=== PATIENT | male | born 1980 | race African-American/Black ===

== ENCOUNTER 2018-09-24 21:10 | Emergency (ER) | payer SELFPAY ==
[~2018-09-24] VITALS: Ht 172.7 cm; Wt 93.6 kg
[2018-09-24 21:15] VITALS: Ht 172.7 cm; Wt 93.6 kg
[2018-09-24] MEDS ORDERED: OMEPRAZOLE20 M1 PO (22:13)
[2018-09-24] MEDS ORDERED: VOLTAREN75 MG PO (22:13)
[2018-09-24] MEDS ORDERED: ZANAFLEX4 MG PO (22:13)
[2018-09-24 22:59] VITALS: BP 162/107
== END 2018-09-24 22:59 | disposition home or self-care (01) ==
LOC: D.ER 21:10
DX: S63.92XA Sprain of unspecified part of left wrist and hand, initial encounter (principal); W10.9XXA Fall (on) (from) unspecified stairs and steps, initial encounter; Y93.89 Activity, other specified; Y92.019 Unspecified place in single-family (private) house as the place of occurrence of the external cause; S33.5XXA Sprain of ligaments of lumbar spine, initial encounter

== ENCOUNTER 2019-02-06 18:54 | Emergency (ER) | payer SELFPAY ==
[~2019-02-06] VITALS: Ht 172.7 cm; Wt 100.0 kg
[~2019-02-06 18:54] MED LIST: OMEPRAZOLE20 M1 PO; VOLTAREN75 MG PO; ZANAFLEX4 MG PO
[2019-02-06 19:15] VITALS: Ht 172.7 cm; Wt 100.0 kg
[2019-02-06] MEDS ORDERED: CYCLOBENZAPRINE10 MG PO (22:02)
[2019-02-06] MEDS ORDERED: IBUPROFEN800 MG PO (22:02)
[2019-02-06 22:54] VITALS: BP 130/75
== END 2019-02-06 22:10 | disposition home or self-care (01) ==
LOC: D.ER 18:54
DX: M79.672 Pain in left foot (principal); M79.671 Pain in right foot; S16.1XXA Strain of muscle, fascia and tendon at neck level, initial encounter; W13.2XXA Fall from, out of or through roof, initial encounter; Y93.89 Activity, other specified; Y92.89 Other specified places as the place of occurrence of the external cause; S39.012A Strain of muscle, fascia and tendon of lower back, initial encounter

== ENCOUNTER → 2020-10-22 09:42 | Outpatient (CLI) | payer OTHER ==
[2020-08-21 09:44] VITALS: BMI 33.5
[~2020-10-22 09:42] MED LIST changes: +CYCLOBENZAPRINE10 MG PO; +HYDROCODON-ACE1 EA10 PO; +IBUPROFEN800 MG PO; +KEFLEX500 MG PO
== END | disposition home or self-care (01) ==
LOC: D.RAD 09:42
PROVIDERS: ATTEND Pediatrics
DX: Z02.71 Encounter for disability determination (principal)